=== PATIENT | female | born 1995 | race Caucasian/White ===

== ENCOUNTER 2021-01-16 12:33 | Emergency (ER) | payer MEDICAID ==
[2021-01-16 13:12] VITALS: BP 131/81; PULSE 90
--- NOTE | 2021-01-16 13:14 | EDM.PDOC ---
ED HPI GENERAL MEDICAL PROBLEM - General Chief Complaint: Eye Problems Stated Complaint: OD EYE SWOLLEN Time Seen by Provider: 01/16/21 12:59 Source of Information: Reports: Patient History Limitations: Reports: No Limitations - History of Present Illness INITIAL COMMENTS - FREE TEXT/NARRATIVE: patient states she called the clinic today due to waking up with irritation of right upper eye, no drainage/discharge, mildly tender. states she was directed to go to the ER for further evaluation. she denies any visual changes, fever/chills or sick symptoms otherwise. she states she started new job at [employer] working outside this past week and maybe that is what caused issue. she states she had problem similar in past that she was told is duct and given eye drops PMH, Meds, Soc Hx, Allergies all reviewed in record--no acute contributory concerns noted related to today's ER visit Right Eye Pain Score (Numeric/FACES): 2 - Related Data Allergies Allergy/AdvReac Type Severity Reaction Status Date / Time No Known Allergies Allergy Verified 07/31/16 23:45 Home Meds: Home Meds NK [No Known Home Meds] 10/30/14 [History] Past Medical History - Past Health History Medical/Surgical History: Denies Medical/Surgical History - Past Surgical History HEENT Surgical History: Reports: Tonsillectomy Social & Family History - Family History Family Medical History: No Pertinent Family History - Tobacco Use Tobacco Use Status *Q: Current Every Day Tobacco User Years of Tobacco use: 6 Packs/Tins Daily: 0.5 - Caffeine Use Caffeine Use: Reports: Coffee, Soda, Tea - Recreational Drug Use Recreational Drug Use: No ED ROS GENERAL - Review of Systems Review Of Systems: Comprehensive ROS is negative, except as noted in HPI. HEENT: Reports: Other (eye lid on right upper slightly swollen/tender/irriated ). Denies: Eye Discharge, Eye Pain, Vision Change ED EXAM GENERAL W FULL EYE - Physical Exam Exam: See Below Exam Limited By: No Limitations General Appearance: Alert, WD/WN, No Apparent Distress Eye Exam: Left Eye: Normal Inspection (right upper eyelid with mild edema, no erythema/drainage/discharge noted), Bilateral Eye: Conjunctival Injection (no conjunctival changes), EOMI, PERRL, Vision Changes Eyelids: Right: Edema (right upper eyelid with mild edema, no erythema/drainage/discharge noted), Left: Normal Appearance (right upper eyelid with mild edema, no erythema/drainage/discharge noted) Conjunctiva & Sclera: Bilateral: Normal Appearance Cornea Exam: Bilateral: Normal Appearance Extraocular Movements: Bilateral: Intact Pupils: Normal Accommodation Pupillary Size: Bilateral: 5 mm Pupillary Reaction: Bilateral: Brisk Ears: Normal External Exam Head: Atraumatic, Normocephalic Neck: Normal Inspection, Supple, Full Range of Motion Respiratory/Chest: No Respiratory Distress, Lungs Clear, Normal Breath Sounds, No Accessory Muscle Use Cardiovascular: Normal Peripheral Pulses, Regular Rate, Rhythm, No Murmur GI/Abdominal: Normal Bowel Sounds, Soft, Non-Tender, No Distention (Female) Exam: Deferred Rectal (Female) Exam: Deferred Extremities: Normal Inspection, Normal Range of Motion Neurological: Alert, Oriented, CN II-XII Intact, Normal Cognition, No Motor/Sensory Deficits Psychiatric: Normal Affect, Normal Mood Skin Exam: Warm, Dry, Intact, Normal Color Course - Vital Signs Last Recorded V/S: Last Vital Signs Temp 98.2 F 01/16/21 12:43 Pulse 90 01/16/21 12:43 Resp 16 01/16/21 12:43 BP 131/81 01/16/21 12:43 Pulse Ox 97 01/16/21 12:43 Departure - Departure Time of Disposition: 13:16 Disposition: Home, Self-Care 01 Condition: Good Clinical Impression: Eyelid abnormality - Discharge Information *PRESCRIPTION DRUG MONITORING PROGRAM REVIEWED*: Not Applicable *COPY OF PRESCRIPTION DRUG MONITORING REPORT IN PATIENT LESVIA: Not Applicable Instructions: Blepharitis, [id number] Referrals: Martina Ann DO [Primary Care Provider] - Additional Instructions: Use frequent warm compresses to eyelid the next 1-2 days Wash hands frequent, avoid putting/rubbing hands in eyes Sepsis Event Note (ED) - Evaluation Sepsis Screening Result: No Definite Risk - Focused Exam Vital Signs: Vital Signs Temp Pulse Resp BP Pulse Ox 01/16/21 12:43 98.2 F 90 16 131/81 97
== END 2021-01-16 13:23 | disposition home or self-care (01) ==
LOC: JP.ED 12:33
DX: H02.89 Other specified disorders of eyelid (principal); Z72.0 Tobacco use
CPT/HCPCS: 99282; 99283

== ENCOUNTER 2022-08-03 22:32 | Emergency (ER) | payer MEDICAID ==
[2022-08-03 23:05] VITALS: BP 132/96; PULSE 112
[2022-08-04] MEDS ORDERED: Lidocaine 1% 20 ML MDV INJECT ONE (00:01)
[2022-08-04] MEDS ORDERED: Bacitracin Oint 1 GM U/D Packet TOP ONE (00:02)
== END 2022-08-04 01:11 | disposition home or self-care (01) ==
LOC: JP.ED 22:32
DX: S91.312A Laceration without foreign body, left foot, initial encounter (principal); F17.210 Nicotine dependence, cigarettes, uncomplicated; W22.8XXA Striking against or struck by other objects, initial encounter
CPT/HCPCS: 12002; 99282

== ENCOUNTER 2023-03-01 07:32 | Day surgery (SDC) | payer MEDICAID ==
[~2023-03-01 07:32] MED LIST: Acetaminophen 500 MG Tab PO ONE; Bacitracin Oint 1 GM U/D Packet ONE; Bupivacaine 0.5% 50 ML MDV ONE; Lidocaine 1% with EPINEPHrine 1:100,000 50 ML MDV ONE; Midazolam 1 MG/ML 2 ML SDV ONE; Propofol 200 MG/20 ML SDV ONE; fentaNYL 50 MCG/ML SDV ONE
[2023-03-01] MEDS ORDERED: Lactated Ringers 1,000 ML IV SCH (08:00)
[2023-03-01] MEDS ORDERED: Propofol 200 MG/20 ML SDV ONE ×2 (10:22→10:33)
[2023-03-01 12:19] VITALS: BP 121/83; PULSE 84
== END 2023-03-01 11:10 | disposition home or self-care (01) ==
LOC: JP.SDS 07:32
PROVIDERS: ATTEND Student in an Organized Health Care Education/Training Program
DX: D17.0 Benign lipomatous neoplasm of skin and subcutaneous tissue of head, face and neck (principal); F17.200 Nicotine dependence, unspecified, uncomplicated
CPT/HCPCS: 21555; 81025; 88304; J2250; J2704; J3010; J3490; J7120

== ENCOUNTER 2024-05-30 20:54 | Emergency (ER) | payer MEDICAID ==
[2024-05-30 21:05] VITALS: BP 160/108; PULSE 107
[2024-05-30 21:51] LABS: BASOPHILS PERCENT AUTO 0.9 % (0.1-1.3); EOSINOPHILS ABSOLUTE AUTO 0.19 K/uL (0.00-0.40); EOSINOPHILS PERCENT AUTO 1.7 % (0.0-5.4); HEMATOCRIT 36.6 % (34.3-46.0); IMMATURE GRAN ABSOLUTE AUTO 0.07 K/uL (0.00-0.23); IMMATURE GRAN PERCENT AUTO 0.6 % (0.0-0.7); LYMPHOCYTES ABSOLUTE AUTO 2.85 K/uL (0.8-3.3); LYMPHOCYTES PERCENT AUTO 25.7 % (11.4-47.7); MEAN CORPUSCULAR HEMOGLOBIN 30.8 pg (31.6-35.5); MEAN CORPUSCULAR HGB CONC 35.5 g/dL (31.6-35.5); MEAN CORPUSCULAR VOLUME 86.7 fL (81.4-99.0); MONOCYTES ABSOLUTE AUTO 0.99 K/uL (0.20-0.90); MONOCYTES PERCENT AUTO 8.9 % (3.3-12.6); NEUTROPHILS ABSOLUTE AUTO 6.87 K/uL (1.0-7.6); NEUTROPHILS PERCENT AUTO 62.2 % (40.0-78.1); PLATELET COUNT,PLT 336 K/uL (130-375); RED BLOOD CELL COUNT 4.22 M/uL (3.77-5.24); WHITE BLOOD CELL COUNT,WBC 11.1 K/uL (3.2-11.0)
[2024-05-30 22:00] LABS: APPEARANCE,URINE TURBID (CLEAR); BILIRUBIN,URINE NEGATIVE (NEGATIVE); COLOR,URINE YELLOW (YELLOW); GLUCOSE,URINE NEGATIVE (NEGATIVE); KETONES,URINE NEGATIVE (NEGATIVE); LEUKOCYTE ESTERASE,URINE NEGATIVE (NEGATIVE); NITRITE,URINE NEGATIVE (NEGATIVE); OCCULT BLOOD,URINE NEGATIVE (NEGATIVE); PROTEIN,URINE NEGATIVE (NEGATIVE); UROBILINOGEN,URINE 0.2 EU/dL (0.2-1.0)
[2024-05-30 22:06] LABS: AMPHETAMINES SCREEN, URINE PRESUMPTIVE POSITIVE (NEGATIVE); BARBITURATE SCREEN,URINE NEGATIVE (NEGATIVE); BENZODIAZEPINES SCREEN,URINE NEGATIVE (NEGATIVE); METHADONE SCREEN, URINE NEGATIVE (NEGATIVE); METHAMPHETAMINES SCREEN, URINE NEGATIVE (NEGATIVE); OXYCODONE SCREEN,URINE NEGATIVE (NEGATIVE); PROPOXYPHENE SCREEN,URINE NEGATIVE (NEGATIVE); THC SCREEN,URINE 50 NG/ML PRESUMPTIVE POSITIVE (NEGATIVE)
[2024-05-30 22:07] LABS: AMORPHOUS SEDIMENT,URINE PACKED; BACTERIA,URINE MODERATE; EPITHELIAL CELLS,URINE MANY; MUCUS,URINE FEW; RBC,URINE 0-5 (0-5); WBC,URINE 0-5 (0-5)
[2024-05-30 22:08] LABS: ALANINE AMINOTRANSFERASE,ALT 27 U/L (12-78); ALBUMIN 4.2 g/dL (3.4-5.0); ALKALINE PHOSPHATASE 57 U/L (46-116); ASPARTATE AMNIOTRANSFERASE,AST 16 U/L (15-37); BILIRUBIN TOTAL 0.3 mg/dL (0.2-1.0); BLOOD UREA NITROGEN,BUN 15 mg/dL (7-18); CALCIUM 9.5 mg/dL (8.5-10.1); CARBON DIOXIDE,CO2 24 mmol/L (21-32); CHLORIDE,CL 102 mmol/L (100-108); CREATININE 0.9 mg/dL (0.6-1.0); EST CRCL DRUG DOSING (CG) 84.49 mL/min; ESTIMATED GFR 90 mL/min (>60); GLUCOSE RANDOM 108 mg/dL (74-106); POTASSIUM,K 3.5 mmol/L (3.6-5.2); PROTEIN TOTAL,TP 8.3 g/dL (6.4-8.2); SODIUM,NA 140 mmol/L (140-148)
[2024-05-30 22:09] LABS: ANION GAP 17.5 mmol/L (5.0-14.0); C-REACTIVE PROTEIN < 0.50 mg/dL (<0.50)
[2024-05-30 22:12] LABS: LACTIC ACID 1.6 mmol/L (0.4-2.0)
[2024-05-30] MEDS: LORazepam 1 MG Tab PO ONE (23:07)
== END 2024-05-30 23:14 | disposition home or self-care (01) ==
LOC: JP.ED 20:54
DX: F41.9 Anxiety disorder, unspecified (principal); F17.210 Nicotine dependence, cigarettes, uncomplicated; Z79.899 Other long term (current) drug therapy; Z79.51 Long term (current) use of inhaled steroids
CPT/HCPCS: 36415; 80053; 80305-QW; 81001; 83605; 84703; 85025; 86140; 99283; A9270-GY

== ENCOUNTER 2024-06-22 15:14 | Emergency (ER) | payer MEDICAID ==
[2024-06-22 17:40] VITALS: BP 128/79; PULSE 92
== END 2024-06-22 17:54 | disposition home or self-care (01) ==
LOC: JP.ED 15:14
DX: R07.2 Precordial pain (principal); F41.9 Anxiety disorder, unspecified; I10 Essential (primary) hypertension; Z79.899 Other long term (current) drug therapy
CPT/HCPCS: 71046; 71046-26; 99285